=== PATIENT | female | born 1975 | race Hispanic/Latino ===

== ENCOUNTER 2018-03-09 06:44 | Outpatient (CLI) | payer BC ==
--- NOTE | 2018-03-09 08:21 | ULT ---
ABDOMINAL ULTRASOUND: DATE: 03/09/2018. PROVIDED CLINICAL HISTORY: Abdominal pain. FINDINGS: The visualized abdominal aorta, IVC, and pancreas appear normal. The liver demonstrates no mass or i ntrahepatic biliary ductal dilatation. The common duct is not dilated. Gallbladder demonstrates no stones, wall thickening, or pericholecystic fluid. The kidneys demonstrate no hydronephrosis or mass . The spleen is not enlarged and demonstrates no focal abnormality. IMPRESSION: Unremarkable abdominal ultrasound. POS: OFF
== END 2018-03-09 06:45 | disposition home or self-care (01) ==
LOC: BICULT 06:44
PROVIDERS: ATTEND Family Medicine
DX: R10.10 Upper abdominal pain, unspecified (principal); K76.89 Other specified diseases of liver; R79.89 Other specified abnormal findings of blood chemistry
CPT/HCPCS: 76700

== ENCOUNTER 2019-06-09 14:45 | Outpatient (CLI) | payer BC ==
--- NOTE | 2019-06-09 15:07 | RAD ---
CERVICAL SPINE 3 VIEWS: Date: 06/09/2019 HISTORY: Cervical pain. FINDINGS: T1 region is obscured on the lateral view. C1 and odontoid are mostly obscured on the AP open-mouth v iews. Mild multilevel disc osteophytosis. No prevertebral soft tissue swelling. No significant malali gnment. IMPRESSION: Cervical spondylosis. POS: [facility]
== END 2019-06-09 14:46 | disposition home or self-care (01) ==
LOC: BICRAD 14:45
PROVIDERS: ATTEND Family Medicine
DX: M54.2 Cervicalgia (principal); M47.812 Spondylosis without myelopathy or radiculopathy, cervical region
CPT/HCPCS: 36415; 72040; 80053; 80074; 84443; 85025